=== PATIENT | male | born 1940 | race Caucasian/White ===

== ENCOUNTER 2017-10-24 12:11 | Emergency (ER) | payer MEDICARE ==
[~2017-10-24 12:11] MED LIST: ASPI81 PO; ATOR10TA15 PO; BLOOD GLUCOSE T1 TES; GLIP10TA6 PO; GLUCOMTESTSTRIPS XX; HYDR25TA5 PO; LISI-515 PO; Lancets; METF500T PO; OXYC1TAB63 PO; TAMS0.4C4 PO
[2017-10-24 12:13] VITALS: BP 139/65; PULSE 65; RESP 14; TEMP 98.2; O2SAT 98
[2017-10-24] MEDS ORDERED: ASPI-516 PO (13:09)
--- NOTE | 2017-10-24 13:11 | RADRPT ---
EXAM DATE/TIME: 10/24/2017 12:51 [place] COMPARISON: No previous studies available for comparison. INDICATIONS : Constipation. MEDICAL HISTORY : None. SURGICAL HISTORY : None. ENCOUNTER: Initial ACUITY: 1 day PAIN SCORE: 10 LOCATION: Right abdomen. FINDINGS: Supine view of the abdomen was performed. Moderate amount retained stool is noted. The abdominal bow el gas pattern is otherwise normal. No abnormal masses, calcifications, or organomegaly is seen. Th e osseous structures are unremarkable. CONCLUSION: 1. Moderate amount retained stool throughout the colon. 2. No evidence of significant ileus. Sandro Cavazos MD on October 24, 2017 at 13:08 Board Certified Radiologist. This report was verified electronically.
[2017-10-24] MEDS ORDERED: SODIUM CHLOR 0.9% 1000 ML INJ 1,000 ML IV SCH (13:18)
[2017-10-24] MEDS ORDERED: SODIUM CHLORIDE 0.9% FLUSH 10 ML FLUSH IV FLUSH PRN (13:30)
--- NOTE | 2017-10-24 13:39 | PD ---
HPI Chief Complaint: GI Complaint Time Seen by Provider: 13:18 Travel History International Travel<30 days: No Contact w/Intl Traveler<30days: No Traveled to known affect area: No History of Present Illness HPI Patient is a 77-year-old male who presents to emergency room complaints of abdominal pain with constipation. Patient reports that he has bowel movements every 2-3 days normally, reports that his last bowel movement was 5 days ago. Patient reports that he tried taking Dulcolax for symptomatic relief of his constipation, patient reports that he is unable to have a bowel movement. Patient reports crampy lower abdominal pain this time. Reports that he has never had any surgeries to his abdomen in the past. Patient denies any nausea vomiting, denies any fever or chills. Patient denies any chest pain or shortness of breath. No other complaints at this time. PFSH Past Medical History Hx Anticoagulant Therapy: Yes (ASA) Cardiac Catheterization: Yes Cardiovascular Problems: Yes (HTN) High Cholesterol: Yes Diabetes: Yes (glipizide) Patient Takes Glucophage: Yes Diminished Hearing: No Hypertension: Yes Medical other: Yes (DM) Tetanus Vaccination: > 5 Years Influenza Vaccination: No Past Surgical History Coronary Artery Bypass Graft: Yes Eye Surgery: Yes Social History Alcohol Use: No Tobacco Use: Yes (1 PK A DAY) Substance Use: No Allergies-Medications (Allergen,Severity, Reaction): Coded Allergies: No Known Allergies (Verified Adverse Reaction, Unknown, 10/24/17) Reported Meds & Prescriptions Reported Meds & Active Scripts Active Oxycodone-Acetaminophen 5-325 mg Tab 1 Tab PO Q6H PRN Atorvastatin (Atorvastatin Calcium) 10 Mg Tab 10 Mg PO HS Tamsulosin (Tamsulosin HCl) 0.4 Mg Cap 0.4 Mg PO HS Metformin (Metformin HCl) 500 Mg Tab 500 Mg PO BIDPC With meals Glipizide 10 Mg Tab 10 Mg PO DAILY Take 30 minutes before a meal Reported Aspirin 81 Mg Chew 81 Mg PO DAILY Hydrochlorothiazide 25 Mg Tab 25 Mg PO DAILY Lisinopril 20 Mg Tab 20 Mg PO DAILY Review of Systems General / Constitutional: No: Fever Eyes: No: Visual changes HENT: No: Headaches Cardiovascular: No: Chest Pain or Discomfort Respiratory: No: Shortness of Breath Gastrointestinal: Positive: Abdominal Pain, Constipation, No: Nausea, Vomiting Genitourinary: No: Urgency, Frequency, Dysuria Musculoskeletal: No: Pain Skin: No Rash Neurologic: No: Weakness Psychiatric: No: Depression Endocrine: No: Polydipsia Hematologic/Lymphatic: No: Easy Bruising Physical Exam Narrative GENERAL: mild distress SKIN: Focused skin assessment warm/dry. HEAD: Atraumatic. Normocephalic. EYES: Pupils equal and round. No scleral icterus. No injection or drainage. ENT: No nasal bleeding or discharge. Mucous membranes pink and moist. NECK: Trachea midline. No JVD. CARDIOVASCULAR: Regular rate and rhythm. No murmur appreciated. RESPIRATORY: No accessory muscle use. Clear to auscultation. Breath sounds equal bilaterally. GASTROINTESTINAL: Abdomen soft, non-tender, nondistended. Hepatic and splenic margins not palpable. MUSCULOSKELETAL: No obvious deformities. No clubbing. No cyanosis. No edema. NEUROLOGICAL: Awake and alert. No obvious cranial nerve deficits. Motor grossly within normal limits. Normal speech. PSYCHIATRIC: Appropriate mood and affect; insight and judgment normal. Data Data Last Documented VS Vital Signs Date Time Temp Pulse Resp B/P (MAP) Pulse Ox O2 Delivery O2 Flow Rate FiO2 10/24/17 13:11 16 10/24/17 12:13 98.2 65 139/65 (89) 98 Orders Orders Abdomen, Kub Only (10/24/17 ) Complete Blood Count With Diff (10/24/17 13:18) Comprehensive Metabolic Panel (10/24/17 13:18) Lipase (10/24/17 13:18) Prothrombin Time / Inr (Pt) (10/24/17 13:18) Act Partial Throm Time (Ptt) (10/24/17 13:18) Urinalysis - C+S If Indicated (10/24/17 13:18) Iv Access Insert/Monitor (10/24/17 13:18) Sodium Chlor 0.9% 1000 Ml Inj (Ns 1000 M (10/24/17 13:18) Sodium Chloride 0.9% Flush (Ns Flush) (10/24/17 13:30) Ct Abd/Pel W/O Iv Contrast (10/24/17 13:30) Oral Contrast - Adult (10/24/17 13:35) Diatrizoate Liq ( Gastroview Liq) (10/24/17 14:21) Labs Laboratory Tests Test 10/24/17 13:30 10/24/17 14:10 White Blood Count 9.3 TH/MM3 Red Blood Count 4.30 MIL/MM3 Hemoglobin 14.7 GM/DL Hematocrit 42.3 % Mean Corpuscular Volume 98.5 FL Mean Corpuscular Hemoglobin 34.2 PG Mean Corpuscular Hemoglobin Concent 34.7 % Red Cell Distribution Width 13.4 % Platelet Count 260 TH/MM3 Mean Platelet Volume 8.4 FL Neutrophils (%) (Auto) 82.2 % Lymphocytes (%) (Auto) 10.6 % Monocytes (%) (Auto) 6.3 % Eosinophils (%) (Auto) 0.4 % Basophils (%) (Auto) 0.5 % Neutrophils # (Auto) 7.6 TH/MM3 Lymphocytes # (Auto) 1.0 TH/MM3 Monocytes # (Auto) 0.6 TH/MM3 Eosinophils # (Auto) 0.0 TH/MM3 Basophils # (Auto) 0.0 TH/MM3 CBC Comment DIFF FINAL Differential Comment Prothrombin Time 10.7 SEC Prothromb Time International Ratio 1.1 RATIO Activated Partial Thromboplast Time 27.1 SEC Blood Urea Nitrogen 20 MG/DL Creatinine 1.29 MG/DL Random Glucose 220 MG/DL Total Protein 7.3 GM/DL Albumin 4.3 GM/DL Calcium Level 10.4 MG/DL Alkaline Phosphatase 98 U/L Aspartate Amino Transf (AST/SGOT) 18 U/L Alanine Aminotransferase (ALT/SGPT) 22 U/L Total Bilirubin 0.4 MG/DL Sodium Level 138 MEQ/L Potassium Level 4.5 MEQ/L Chloride Level 106 MEQ/L Carbon Dioxide Level 26.6 MEQ/L Anion Gap 5 MEQ/L Estimat Glomerular Filtration Rate 54 ML/MIN Lipase 118 U/L MDM Medical Decision Making Medical Screen Exam Complete: Yes Emergency Medical Condition: Yes Medical Record Reviewed: Yes Interpretation(s) Vital Signs Date Time Temp Pulse Resp B/P (MAP) Pulse Ox O2 Delivery O2 Flow Rate FiO2 10/24/17 13:11 16 10/24/17 12:13 98.2 65 14 139/65 (89) 98 Differential Diagnosis Constipation, small bowel obstruction Narrative Course During the course of the patients emergency department visit, the patients history, examination, and differential diagnosis were reviewed with the patient. The patient was placed on a electromechanical engineer with oximetry and frequent blood pressure monitoring. The patient had an IV access obtained and blood work sent for analysis. The patient was initially provided IVF and oral contrast for CT of abdomen and pelvis The patients laboratory studies were reviewed and remarkable for: CBC & BMP Diagram 10/24/17 13:30 Total Protein 7.3, Albumin 4.3, Calcium Level 10.4 H, Alkaline Phosphatase 98, Aspartate Amino Transf (AST/SGOT) 18, Alanine Aminotransferase (ALT/SGPT) 22, Total Bilirubin 0.4 Patient requesting to leave AMA as he has a doctor's appointment: AMA: The risks of leaving against medical advice without further evaluation treatment were discussed with the patient. These risks include cardiac dysfunction, cardiac dysrhythmia, possible heart attack, possible stroke or . The patient indicated understanding of these risks and appeared to have the capacity to make this decision. Diagnosis Primary Impression: Left against medical advice Patient Instructions: General Instructions Additional Instructions: You may return to ER at any time for re-evaluation of your symptoms Please follow up with your primary care doctor as soon as possible Disposition: 07 AGAINST MEDICAL ADVICE Condition: Stable Rahel Badillo DO Oct 24, 2017 13:39
[2017-10-24 13:57] LABS: AUTOMATED NEUTROPHIL # 7.6 TH/MM3 (1.8-7.7); BASOPHIL % 0.5 % (0.0-2.0); EOSINOPHIL % 0.4 % (0.0-4.0); HEMATOCRIT 42.3 % (39.0-51.0); HEMOGLOBIN 14.7 GM/DL (13.0-17.0); LYMPH % 10.6 % (9.0-44.0); MEAN CELL VOLUME 98.5 FL (80.0-100.0); MEAN CORPUSCULAR HEMOGLOBIN 34.2 PG (27.0-34.0); MEAN CORPUSCULAR HGB CONC 34.7 % (32.0-36.0); MEAN PLATELET VOLUME 8.4 FL (7.0-11.0); MONO % 6.3 % (0.0-8.0); MONOCYTE # 0.6 TH/MM3 (0-0.9); NEUT % 82.2 % (16.0-70.0); PLATELET COUNT 260 TH/MM3 (150-450); RED CELL DISTRIBUTION WIDTH 13.4 % (11.6-17.2); WHITE BLOOD COUNT 9.3 TH/MM3 (4.0-11.0)
[2017-10-24 14:08] LABS: INTERNATIONAL NORMALIZED RATIO 1.1 RATIO; PROTHROMBIN TIME - PATIENT 10.7 SEC (9.8-11.6)
[2017-10-24] MEDS ORDERED: DIATRIZOATE MEGLUM/DIATRIZOATE SOD 9 ML CUP ONE (14:21)
[2017-10-24 14:24] LABS: ALBUMIN 4.3 GM/DL (3.4-5.0); ALKALINE PHOSPHATASE 98 U/L (45-117); ALT (GPT) 22 U/L (12-78); AST (GOT) 18 U/L (15-37); BICARBONATE 26.6 MEQ/L (21.0-32.0); BLOOD UREA NITROGEN 20 MG/DL (7-18); CALCIUM 10.4 MG/DL (8.5-10.1); CHLORIDE 106 MEQ/L (98-107); CREATININE 1.29 MG/DL (0.60-1.30); GLOMERULAR FILTRATION RATE 54 ML/MIN (>89); GLUCOSE,RANDOM 220 MG/DL (74-106); LIPASE 118 U/L (73-393); SODIUM (NA) 138 MEQ/L (136-145); TOTAL BILIRUBIN ADULT 0.4 MG/DL (0.2-1.0); TOTAL PROTEIN 7.3 GM/DL (6.4-8.2)
[2017-10-24 15:07] LABS: AMORPHOUS SEDIMENT, URINE RARE; BILIRUBIN, URINE NEG (NEG); BLOOD, URINE NEG (NEG); GLUCOSE,URINE 1000 mg/dL (NEG); KETONE, URINE NEG (NEG); MUCUS URINE FEW /lpf (OCC); NITRITE,URINE NEG (NEG); SPERM, URINE RARE; SQUAMOUS EPITHELIAL CELL URINE <1 /hpf (0-5); URINE COLOR YELLOW (YELLW/STRAW); URINE LEUKOCYTE ESTERASE NEG (NEG)
[2017-11-01] MEDS ORDERED: GLUCTES27 (15:42)
[2017-11-01] MEDS ORDERED: BLOOD GLUCOSE T1 TES (15:45)
== END 2017-10-24 15:04 | disposition left against medical advice (07) ==
LOC: NEPD 12:11
DX: R10.30 Lower abdominal pain, unspecified (principal); K59.00 Constipation, unspecified; I10 Essential (primary) hypertension; E78.00 Pure hypercholesterolemia, unspecified; E11.9 Type 2 diabetes mellitus without complications; F17.200 Nicotine dependence, unspecified, uncomplicated; Z79.82 Long term (current) use of aspirin; Z79.899 Other long term (current) drug therapy; Z53.21 Procedure and treatment not carried out due to patient leaving prior to being seen by health care provider
CPT/HCPCS: 74000; 80053; 81001; 83690; 85025; 85610; 85730; 96360; 99285; J7030; Q9963